=== PATIENT | female | born 1980 | race Caucasian/White ===

== ENCOUNTER → 2018-11-23 | Outpatient (CLI) | payer OTHER ==
--- NOTE | 2018-11-23 12:23 | RAD ---
Obstetrical ultrasound-limited, 11/23/2018: HISTORY: Advanced , check NATHAN, placental position, weight No previous studies are available at this time for comparison purposes. There is a single intrauterine fetus in a cephalic orientation. The biparietal diameter measures 8.9 cm suggesting a gestational age of 35 weeks and 6 days. The gestational age based on all of the measurements is 36 weeks and 2 days yielding a sonographic EDC of 12/19/2018. The heart rate is 153 bpm. The weight was estimated at 6 pounds and 6 ounces +/- 15 ounces. A full survey was not performed at this time. A normal amount of amniotic fluid is evident with the NATHAN calculated at 18.6. The placenta lies anteriorly extending into the fundal region. There is no evidence of placenta previa. The cervical length is 3.2 cm. IMPRESSION: Single viable intrauterine fetus of 36-37 weeks gestational age as described above. Electronically signed by: Kelvin Paz MD (11/23/2018 12:20 PM) [facility]
== END | disposition home or self-care (01) ==
LOC: US 09:51
PROVIDERS: ATTEND Registered Nurse
DX: O09.43 Supervision of pregnancy with grand multiparity, third trimester (principal); O09.293 Supervision of pregnancy with other poor reproductive or obstetric history, third trimester; Z3A.36 36 weeks gestation of pregnancy
CPT/HCPCS: 76815